=== PATIENT | male | born 1960 | race Caucasian/White ===

== ENCOUNTER 2025-01-24 11:53 | Observation (INO) | payer MEDICARE ==
[~2025-01-24] VITALS: Ht 177.8 cm; Wt 74.8 kg
[2025-01-24 12:02] VITALS: TEMP 98.1
[2025-01-24] MEDS ORDERED: DILTIAZEM HCL 100 ML IV SCH (12:30)
[2025-01-24 12:38] LABS: BASOPHILS % 0.6 % (0.0-1.0); EOSINOPHILS % 0.6 % (0.0-6.0); HEMATOCRIT 44.3 % (38.2-49.6); HEMOGLOBIN 15.8 g/dL (14.0-18.0); LYMPHOCYTES # (AUTO) 1.8 (1.0-3.2); LYMPHOCYTES % 25.3 % (18.0-39.1); MEAN CORPUSCULAR HEMOGLOBIN 31.9 pg (28-32); MEAN CORPUSCULAR HGB CONC 35.7 g/dL (31-35); MEAN CORPUSCULAR VOLUME 89.3 fL (81-99); MONOCYTES # (AUTO) 0.6 (0.2-0.8); MONOCYTES % 8.3 % (4.4-11.3); NEUTROPHILS # (AUTO) 4.6 (2.1-6.9); NEUTROPHILS % 64.8 % (38.7-80.0); PLATELET COUNT 258 x10e3/uL (140-360); RED BLOOD COUNT 4.96 x10e6/uL (4.3-5.7); RED CELL DISTRIBUTION WIDTH 11.9 % (11.7-14.4); WHITE BLOOD COUNT 7.08 x10e3/uL (4.8-10.8)
[2025-01-24] MEDS: SODIUM CHLORIDE 0.9% 1000ML 1,000 ML IV STA (12:47)
[2025-01-24 12:51] LABS: INR 0.98; PARTIAL THROMBOPLASTIN TIME 30.3 seconds (23.8-35.5); PROTHROMBIN TIME 13.6 seconds (11.9-14.5)
[2025-01-24 13:00] LABS: ALBUMIN 4.2 g/dL (3.5-5.0); ALBUMIN/GLOBULIN RATIO 1.5 (0.8-2.0); ANION GAP 15.1 mmol/L (8-16); BILIRUBIN,TOTAL 0.6 mg/dL (0.2-1.2); CALCIUM 9.5 mg/dL (8.4-10.2); CREATININE, SERUM 1.03 mg/dL (0.72-1.25); POTASSIUM 4.1 mmol/L (3.5-5.1)
[2025-01-24] MEDS ORDERED: IOPAMIDOL 370 MG/ML 100 ML INFUS..BTL INJ ONE (13:04)
[2025-01-24 13:08] LABS: TROPONIN I 0.01 ng/mL (0-0.300)
[2025-01-24 14:16] VITALS: PULSE 55; RESP 16
[2025-01-24] MEDS: ASPIRIN 81 MG CHEW TAB PO ONE (14:35)
[2025-01-24] MEDS ORDERED: ASPIRIN 325 MG TAB ONE (14:49)
[2025-01-24] MEDS ORDERED: CLOPIDOGREL BISULFATE 75 MG TAB ONE (14:49)
[2025-01-24] MEDS: CLOPIDOGREL BISULFATE 300 MG TAB-DO NOT STOCK PO ONE (15:17)
[2025-01-24] MEDS ORDERED: ONDANSETRON HCL INJ 2MG/ML 2ML 2 MG/ML VIAL IV PRN (16:45)
[2025-01-24] MEDS: SODIUM CHLORIDE 0.9% 1000ML 1,000 ML IV SCH (18:47)
[2025-01-24 18:51] LABS: TROPONIN I 0.019 ng/mL (0-0.300)
[2025-01-24 20:08] VITALS: BP 134/60; PULSE 51; RESP 17; TEMP 97.9; O2SAT 98
[2025-01-24] MEDS ORDERED: PNEUMOCOCCAL VACCINE POLYVALENT 23 MCG/0.5 ML VIAL IM SCH (21:47)
[2025-01-24 22:01] VITALS: BP 134/60; PULSE 51; RESP 17; TEMP 97.9; O2SAT 98
[2025-01-24 22:43] VITALS: BP 134/60; PULSE 51; RESP 17; TEMP 97.9; O2SAT 98
[2025-01-24 22:45] LABS: CLARITY,URINE SL CLOUDY (CLEAR); COLOR,URINE YELLOW (YELLOW)
[2025-01-24 22:46] LABS: BACTERIA,URINE FEW /HPF; BILIRUBIN,URINE NEGATIVE (NEGATIVE); EPITHELIAL CELLS,URINE FEW /LPF; GLUCOSE, URINE NEGATIVE (NEGATIVE); KETONES,URINE NEGATIVE (NEGATIVE); LEUKOCYTE ESTERASE ,URINE NEGATIVE (NEGATIVE); NITRITE,URINE NEGATIVE (NEGATIVE); PH,URINE 7 (5 - 7); PROTEIN,URINE DIPSTICK NEGATIVE (NEGATIVE); URINE UROBILINOGEN 1 mg/dL (0.2 - 1); WBC,URINE (MAN) 0-5 /HPF (0-5)
[2025-01-24] MEDS ORDERED: SIMETHICONE 80 MG CHEW PO PRN (23:30)
[2025-01-24] MEDS ORDERED: MELATONIN 5 MG TABLET PO PRN (23:30)
[2025-01-24] MEDS ORDERED: LIDOCAINE 4% PATCH TP PRN (23:30)
[2025-01-24] MEDS ORDERED: DOCUSATE SODIUM 100 MG CAP PO PRN (23:30)
[2025-01-24] MEDS ORDERED: HYDRALAZINE HCL 20 MG/ML VIAL IV PRN (23:30)
[2025-01-24] MEDS ORDERED: POTASSIUM CHLORIDE 20 MEQ TAB CR PO PRN (23:30)
[2025-01-24] MEDS ORDERED: DEXTROSE 50% SYRINGE 50 ML IV PRN (23:30)
[2025-01-24] MEDS ORDERED: BENZONATATE 100 MG CAP PO PRN (23:30)
[2025-01-24] MEDS ORDERED: ALBUTEROL/IPRATROPIUM 3 ML NEB NEB PRN (23:30)
[2025-01-24] MEDS ORDERED: ACETAMINOPHEN 325 MG TAB PO PRN (23:30)
[2025-01-24] MEDS ORDERED: DIPHENHYDRAMINE HCL 25 MG CAP PO PRN (23:30)
[2025-01-24] MEDS: ATORVASTATIN 40 MG TAB PO SCH (23:31)
[2025-01-25 00:13] VITALS: BP 135/70; PULSE 54; RESP 17; TEMP 97.9; O2SAT 97
[2025-01-25 00:31] LABS: TROPONIN I 0.016 ng/mL (0-0.300)
[2025-01-25 05:07] LABS: BASOPHILS # (AUTO) 0.1 (0.0-0.1); BASOPHILS % 0.8 % (0.0-1.0); EOSINOPHILS # (AUTO) 0.1 (0.0-0.4); EOSINOPHILS % 1.1 % (0.0-6.0); HEMATOCRIT 42.3 % (38.2-49.6); HEMOGLOBIN 14.9 g/dL (14.0-18.0); LYMPHOCYTES # (AUTO) 2.3 (1.0-3.2); LYMPHOCYTES % 36.2 % (18.0-39.1); MEAN CORPUSCULAR HEMOGLOBIN 31.8 pg (28-32); MEAN CORPUSCULAR HGB CONC 35.2 g/dL (31-35); MEAN CORPUSCULAR VOLUME 90.4 fL (81-99); MONOCYTES # (AUTO) 0.6 (0.2-0.8); NEUTROPHILS # (AUTO) 3.3 (2.1-6.9); NEUTROPHILS % 51.3 % (38.7-80.0); PLATELET COUNT 213 x10e3/uL (140-360); RED BLOOD COUNT 4.68 x10e6/uL (4.3-5.7); RED CELL DISTRIBUTION WIDTH 11.6 % (11.7-14.4); WHITE BLOOD COUNT 6.43 x10e3/uL (4.8-10.8)
[2025-01-25 05:29] LABS: ALBUMIN 3.6 g/dL (3.5-5.0); ALBUMIN/GLOBULIN RATIO 1.9 (0.8-2.0); ANION GAP 11.7 mmol/L (8-16); BILIRUBIN,TOTAL 0.5 mg/dL (0.2-1.2); CALCIUM 8.5 mg/dL (8.4-10.2); CREATININE, SERUM 0.82 mg/dL (0.72-1.25); POTASSIUM 3.7 mmol/L (3.5-5.1); TOTAL PROTEIN 5.5 g/dL (6.5-8.1)
[2025-01-25 06:08] LABS: THYROID STIMULATING HORMONE 1.928 uIU/mL (0.350-4.940)
[2025-01-25 06:32] LABS: CHOL/HDL RATIO 3.5 (3.9-4.7)
[2025-01-25 07:41] VITALS: BP 146/64; PULSE 62; RESP 17; TEMP 97.2; O2SAT 99
[2025-01-25] MEDS: PANTOPRAZOLE SOD 40 MG TABEC PO SCH (08:14)
[2025-01-25] MEDS: ASPIRIN 81 MG ENTERIC COATED PO SCH (08:14)
[2025-01-25] MEDS: CLOPIDOGREL BISULFATE 75 MG TAB PO SCH (08:14)
[2025-01-25 09:00] VITALS: BP 146/64; PULSE 62; RESP 17; TEMP 97.2; O2SAT 99
[2025-01-25 11:16] VITALS: BP 143/75; PULSE 52; RESP 16; TEMP 98; O2SAT 99
[2025-01-25] MEDS ORDERED: LEVOCETIRIZINE D5 MG PO (14:57)
[2025-01-25] MEDS ORDERED: PRAVASTATIN SOD20 MG PO (14:57)
[2025-01-25] MEDS ORDERED: LISINOPRIL-HCT1 EAC1 PO (14:57)
[2025-01-25] MEDS ORDERED: AMLODIPINE BESY10 MG PO (14:57)
[2025-01-25 16:12] VITALS: BP 179/62; PULSE 57; RESP 17; TEMP 97.4; O2SAT 98
[2025-01-25] MEDS: ENOXAPARIN SOD INJ 40 MG/0.4 ML SYR SC SCH (16:55)
[2025-01-25 18:45] VITALS: BP 125/53; PULSE 52; RESP 16; TEMP 97.5; O2SAT 99
[2025-01-26] MEDS ORDERED: LISINOPRIL 20 MG TAB PO SCH (09:00)
[2025-01-26] MEDS ORDERED: AMLODIPINE BESYLATE 10 MG TAB PO SCH (09:00)
[2025-01-26] MEDS ORDERED: HYDROCHLOROTHIAZIDE 25 MG TAB PO SCH (09:00)
== END 2025-01-25 19:02 | disposition home or self-care (01) ==
LOC: ER 12:04 → ERHOLD 16:41 → MED/SURG 18:23
PROVIDERS: ADMIT Internal Medicine; ATTEND Internal Medicine
DX: I65.21 Occlusion and stenosis of right carotid artery (principal); I10 Essential (primary) hypertension; E78.5 Hyperlipidemia, unspecified; R00.1 Bradycardia, unspecified; I45.10 Unspecified right bundle-branch block; Z79.01 Long term (current) use of anticoagulants; Z79.82 Long term (current) use of aspirin; K21.9 Gastro-esophageal reflux disease without esophagitis; Z85.828 Personal history of other malignant neoplasm of skin
CPT/HCPCS: 36415 ×2; 70450; 70496; 70498; 70551; 71045; 80053 ×2; 80061; 81001; 82550 ×2; 83036; 83735 ×2; 84443; 84484 ×2; 85025 ×2; 85610; 85730; 87086; 93005; 93306; 97161; 99284; G0378 ×2; J1650; J2470; J7030 ×2; Q9967